=== PATIENT | female | born 1995 | race Two or more races ===

== ENCOUNTER 2018-11-06 13:19 | Emergency (ER) | payer MEDICAID ==
[~2018-11-06] VITALS: Ht 170.2 cm; Wt 77.0 kg
[2018-11-06 13:25] VITALS: BP 118/78; PULSE 78; RESP 17; Ht 170.2 cm; Wt 77.0 kg
[2018-11-06] MEDS ORDERED: NAPR-985 PO (14:30)
--- NOTE | 2018-11-06 15:23 | ERD ---
ER Documentation Chief Complaint Chief Complaint RT THIGH SWELLING STARTED THIS AM - DENIES INJURY - FEELS PRESSURE HPI 23-year-old female presenting with swelling to her right thigh. She states that started this morning. She denies any injury. She feels some mild pressure but denies any pain and denies any redness or fevers. Has not taken medications for his symptoms. Denies medical problems. NKDA. Surgical history denies. Social history denies. She states that she was on her feet a lot echo told her this last weekend but denies any recent falls or traumatic injuries. ROS All systems reviewed and are negative except as per history of present illness. Medications Home Meds Active Scripts Naproxen* (Naprosyn*) 500 Mg Tablet, 500 MG PO BID PRN for PAIN AND/OR INFLAMMATION, #30 TAB Prov:WAI PA PA-C 11/06/18 Allergies Allergies: Coded Allergies: No Known Allergy (Unverified , 11/06/18) PMhx/Soc Medical and Surgical Hx: pt denies Medical Hx, pt denies Surgical Hx Hx Alcohol Use: No Hx Substance Use: No Hx Tobacco Use: No Smoking Status: Never smoker FmHx Family History: No diabetes, No coronary disease, No other Physical Exam Vitals Vital Signs Date Temp Pulse Resp B/P (MAP) Pulse Ox O2 O2 Flow FiO2 Time Delivery Rate 11/06/18 98.1 78 17 118/78 99 13:25 (91) Physical Exam GENERAL: The patient is well-appearing, well-nourished, in no acute distress CHEST: Clear to auscultation bilaterally. There are no rales, wheezes or rhonchi. HEART: Regular rate and rhythm. No murmurs, clicks, rubs or gallops. EXTREMITIES: Equal pulses bilaterally. There is no peripheral clubbing, cyanosis or edema. No focal swelling or erythema. Full range of motion. Grossly neurovascularly intact. NEUROLOGIC: Alert and oriented. Cranial nerves II through XII intact. Motor strength in all 4 extremities with 5 out of 5 strength. Sensation grossly intact. SKIN: Swelling noted to the inferior thigh above the right knee. No erythema. Procedures/MDM ER course: Jarrod wrap applied in ED. MDM: 23-year-old female presenting with swelling to the upper thigh. I have low suspicion for bacterial infection. I have low suspicion for bony injury and I do not feel x-rays indicated. I have low suspicion for neuro deficit. Patient is discharged with strict ER precautions and told to follow-up with primary care within 1-2 days for close evaluation. All questions answered discharge Departure Diagnosis: Primary Impression: Swelling Condition: Stable Patient Instructions: Peripheral Edema, Unilateral Referrals: [facility] YOU HAVE RECEIVED A MEDICAL SCREENING EXAM AND THE RESULTS INDICATE THAT YOU DO NOT HAVE A CONDITION THAT REQUIRES URGENT TREATMENT IN THE EMERGENCY DEPARTMENT. FURTHER EVALUATION AND TREATMENT OF YOUR CONDITION CAN WAIT UNTIL YOU ARE SEEN IN YOUR DOCTORS OFFICE WITHIN THE NEXT 1-2 DAYS. IT IS YOUR RESPONSIBILITY TO MAKE AN APPOINTMENT FOR FOLOW-UP CARE. IF YOU HAVE A PRIMARY DOCTOR --you should call your primary doctor and schedule an appointment IF YOU DO NOT HAVE A PRIMARY DOCTOR YOU CAN CALL OUR PHYSICIAN REFERRAL HOTLINE AT IF YOU CAN NOT AFFORD TO SEE A PHYSICIAN YOU CAN CHOSE FROM THE FOLLOWING [facility] [address] [facility] [address] [facility] [facility] [address] [facility] [address] [facility] [address] [facility]. [facility]. [address] Additional Instructions: FOLLOW UP WITH YOUR PRIMARY CARE PHYSICIAN TOMORROW.Return to this facility if you are not improving as expected. WAI PA PA-C Nov 06, 2018 15:23
== END 2018-11-06 14:59 | disposition home or self-care (01) ==
LOC: FTE 13:19
DX: M79.89 Other specified soft tissue disorders (principal)
CPT/HCPCS: 99282